=== PATIENT | female | born 1955 | race Caucasian/White ===

== ENCOUNTER → 2017-04-24 | Outpatient (CLI) | payer OTHER | LOC: KOH-I 12:17 | DX: M54.16 Radiculopathy, lumbar region (principal); M47.896 Other spondylosis, lumbar region | CPT/HCPCS: 72110 ==

== ENCOUNTER → 2020-11-12 | Outpatient (CLI) | payer MEDICARE, BC, OTHER | LOC: MAMO 12:20 → US 13:30 | DX: R92.8 Other abnormal and inconclusive findings on diagnostic imaging of breast (principal); N63.12 Unspecified lump in the right breast, upper inner quadrant | CPT/HCPCS: 76641-LT; 76641-RT; 77065; G0279 ==

== ENCOUNTER → 2021-07-26 | Outpatient (CLI) | payer BC, MEDICARE | LOC: MAMO 05-29 10:00 | DX: R92.8 Other abnormal and inconclusive findings on diagnostic imaging of breast (principal) | CPT/HCPCS: 76642-RT; 77065 ==

== ENCOUNTER 2022-04-30 11:18 | Emergency (ER) | payer BC, MEDICARE ==
[2022-04-30] MEDS ORDERED: HYDROCODON-ACE1 EAC4 PO (18:45)
== END 2022-04-30 18:56 | disposition home or self-care (01) ==
LOC: ER1 11:18
DX: S82.842A Displaced bimalleolar fracture of left lower leg, initial encounter for closed fracture (principal); I10 Essential (primary) hypertension; E11.9 Type 2 diabetes mellitus without complications; Z88.5 Allergy status to narcotic agent; X50.1XXA Overexertion from prolonged static or awkward postures, initial encounter; Y92.009 Unspecified place in unspecified non-institutional (private) residence as the place of occurrence of the external cause
CPT/HCPCS: 73590; 73610; 96374; 96375; 99283; J2270; J2405